=== PATIENT | female | born 1970 | race Caucasian/White ===

== ENCOUNTER → 2019-04-16 12:28 | Outpatient (CLI) | payer MEDICAID, SELFPAY ==
--- NOTE | 2019-04-16 12:32 | CDU_ITS ---
Reason For Study: Occlusion/Stenosis Rt. Velocities/BP Lt. Velocities/BP Prox CCA 61.9/17.9 cm/sec. Prox CCA 99.2/31.6 cm/sec. Mid CCA, prox to stent, 53.1/20.1 Mid CCA 104.7/38.9 cm/sec. cm/sec. Dist CCA 84.6/24.3 cm/sec. Dist CCA, prox stent, 72.8/30 cm/sec. Prox ICA 71.8/22.5 cm/sec. Bulb, mid stent, 106/35.8 cm/sec. Mid ICA 81.4/26.2 cm/sec. Prox ICA, distal stent, 119.2/42.4 Dist ICA 85.1/31.1 cm/sec. cm/sec. Lt. ICA/CCA = 0.9. Mid ICA, distal to stent, 112.6/35.8 Prox ECA 110.1/29.8 cm/sec. cm/sec. Lt. Vert. 44.7/18.2 cm/sec. Dist ICA 86.4/33.4 cm/sec. Rt. ICA/CCA = 1.9. Prox ECA 27.3/5.5 cm/sec. Rt. Vert. 72.8/20 cm/sec. Right Extracranial There is intimal thickening but no significant atherosclerotic plaque noted in the right common carotid artery. Stent noted from mid to distal Rt CCA. There is intimal thickening but no significant atherosclerotic plaque noted in the right internal carotid artery. Stent noted from bulb to mid Rt ICA. There is homogeneous, smooth atherosclerotic plaque noted in the right external carotid artery. Antegrade flow is noted in the right vertebral artery. Left Extracranial There is intimal thickening but no significant atherosclerotic plaque noted in the left common carotid artery. There is intimal thickening but no significant atherosclerotic plaque noted in the left internal carotid artery. There is no significant atherosclerotic plaque noted in the left external carotid artery. Antegrade flow is noted in the left vertebral artery. Procedure Carotid Duplex [id number]. Exam performed in department. 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 <50% stenosis left external carotid Patent, antegrade vertebrals bilaterally Ordering Physician: Lucia Holden Referring Physician: Samantha Muhammad Performed By: Laura Crawford RVT
== END ==
PROVIDERS: PCP Family Medicine; Referring Provider Radiology Diagnostic Radiology; Visit Provider Radiology Diagnostic Radiology
DX: I65.21 Occlusion and stenosis of right carotid artery (principal)
CPT/HCPCS: 93880